=== PATIENT | female | born 1990 | race Caucasian/White ===

== ENCOUNTER 2017-12-14 08:14 | Outpatient (RCR) | payer OTHER ==
[~2017-12-14 08:14] MED LIST: LORTAB 5/500 501 TAB PO; NO HOME MEDICATIONS; SILVADENE 400G400 GM TP
== END 2017-12-25 15:45 | disposition home or self-care (01) ==
LOC: WSOH 08:14
DX: S80.02XA Contusion of left knee, initial encounter (principal); S83.012A Lateral subluxation of left patella, initial encounter; Z79.1 Long term (current) use of non-steroidal anti-inflammatories (NSAID); Z79.899 Other long term (current) drug therapy; W22.09XA Striking against other stationary object, initial encounter; Y92.59 Other trade areas as the place of occurrence of the external cause; Y99.0 Civilian activity done for income or pay
CPT/HCPCS: 24774; L1810

== ENCOUNTER → 2018-07-05 | Outpatient (CLI) | payer BC | LOC: COL.RAD 12:18 | DX: S06.0X0A Concussion without loss of consciousness, initial encounter (principal); R22.1 Localized swelling, mass and lump, neck ==

== ENCOUNTER → 2019-11-05 | Outpatient (CLI) | payer BC | LOC: COL.RAD 12:30 | DX: G43.109 Migraine with aura, not intractable, without status migrainosus (principal); M54.2 Cervicalgia ==

== ENCOUNTER → 2019-11-12 | Outpatient (CLI) | payer BC | LOC: COL.CARD 10:00 | DX: G43.109 Migraine with aura, not intractable, without status migrainosus (principal); R42 Dizziness and giddiness; M54.2 Cervicalgia ==

== ENCOUNTER 2019-12-30 14:43 | Outpatient (RCR) | payer BC | END 2020-03-29 | disposition home or self-care (01) | LOC: MKS.ESL.PT | DX: G43.109 Migraine with aura, not intractable, without status migrainosus (principal) ==

== ENCOUNTER → 2021-08-17 | Outpatient (CLI) | payer BC | LOC: COL.RAD 13:42 | DX: R10.9 Unspecified abdominal pain (principal) ==

== ENCOUNTER → 2022-01-31 | Outpatient (CLI) | payer BC ==
[~2022-01-31] MED LIST changes: +CARDIOVID PLUS1 SGL PO; +LESSINA 28 0.021 TAB PO; +MAGNESIUM GLUC500 MG PO; +MULTIVITAMIN FO1 CAP PO; +PAPAYA ENZYME1 TA1 PO; +REVIA 50MG TABL50 MG PO; +RIBOFLAVIN400 MG PO; +SYNTHROID 0.0.025 MG PO; +THE MEDICINE S200 M2 PO; +VITAMIN D3400 I1 PO; +VITAMINC1000TA PO; +WHITE WILLOW BARK PO; +[UNRECOGNIZED DRUG - OTHER] PO
== END ==
LOC: COL.RAD 07:27
DX: R11.2 Nausea with vomiting, unspecified (principal)
CPT/HCPCS: A9541

== ENCOUNTER 2022-02-02 10:28 | Day surgery (SDC) | payer BC ==
[~2022-02-02] VITALS: Ht 167.6 cm; Wt 65.4 kg
[~2022-02-02 10:28] MED LIST changes: -CARDIOVID PLUS1 SGL PO; -LESSINA 28 0.021 TAB PO; -MAGNESIUM GLUC500 MG PO; -MULTIVITAMIN FO1 CAP PO; -PAPAYA ENZYME1 TA1 PO; -REVIA 50MG TABL50 MG PO; -RIBOFLAVIN400 MG PO; -SYNTHROID 0.0.025 MG PO; -THE MEDICINE S200 M2 PO; -VITAMIN D3400 I1 PO; -VITAMINC1000TA PO; -WHITE WILLOW BARK PO; -[UNRECOGNIZED DRUG - OTHER] PO
[2022-02-02 11:10] VITALS: BP 108/64; PULSE 68; TEMP 98.9
[2022-02-02] MEDS ORDERED: SYNTHROID 0.0.025 MG PO (11:21)
[2022-02-02] MEDS ORDERED: REVIA 50MG TABL50 MG PO (11:21)
[2022-02-02] MEDS ORDERED: [UNRECOGNIZED DRUG - OTHER] PO (11:23)
[2022-02-02] MEDS ORDERED: RIBOFLAVIN400 MG PO (11:23)
[2022-02-02] MEDS ORDERED: MAGNESIUM GLUC500 MG PO (11:25)
[2022-02-02] MEDS ORDERED: LESSINA 28 0.021 TAB PO (11:25)
[2022-02-02] MEDS ORDERED: WHITE WILLOW BARK PO (11:27)
[2022-02-02] MEDS ORDERED: VITAMIN D3400 I1 PO (11:27)
[2022-02-02] MEDS ORDERED: VITAMINC1000TA PO (11:28)
[2022-02-02] MEDS ORDERED: MULTIVITAMIN FO1 CAP PO (11:28)
[2022-02-02] MEDS ORDERED: THE MEDICINE S200 M2 PO (11:28)
[2022-02-02] MEDS ORDERED: CARDIOVID PLUS1 SGL PO (11:29)
[2022-02-02] MEDS ORDERED: PAPAYA ENZYME1 TA1 PO (11:30)
--- NOTE | 2022-02-02 11:30 | NUR ---
The patient reports feeling "nauseated after the car ride" which she states it "normal for me". She denies wanting any PRN Zofran IV at this time.
[2022-02-02 12:25] VITALS: BP 100/61; PULSE 56; TEMP 97.4
--- NOTE | 2022-02-02 12:25 | NUR ---
PATIENT ARRIVES TO ROOM 6 VIA CART. ASSIST X 1 TO CHAIR. SHE DOESN'T WANT ANYTHING TO EAT AND DRINK AT THIS TIME. AT BEDSIDE. WILL CONTINUE TO MONITOR.
[2022-02-02 12:40] VITALS: BP 103/74; PULSE 60
--- NOTE | 2022-02-02 12:40 | NUR ---
PATIENT IS DOING WELL. SHE IS RESTING WITH THE LIGHTS OFF DUE TO MIGRAINE HEADACHES. VITAL SIGNS WNL. DOCTOR AT BEDSIDE. WILL CONTINUE TO MONITOR.
[2022-02-02 12:55] VITALS: BP 106/69; PULSE 60
--- NOTE | 2022-02-02 12:55 | NUR ---
PATIENT IS READY FOR DISCHARGE. DOCTOR DONE SPEAKING WITH PATIENT. DISCHARGE INSTRUCTIONS REVIEWED. WILL D/C AFTER SHE IS DRESSED.
== END 2022-02-02 13:00 | disposition home or self-care (01) ==
LOC: SDCO 10:28
DX: K29.50 Unspecified chronic gastritis without bleeding (principal); K58.9 Irritable bowel syndrome, unspecified
CPT/HCPCS: J2405; J2704; J3010; J7120